=== PATIENT | male | born 1995 | race Two or more races ===

== ENCOUNTER 2025-02-17 21:26 | Emergency (ER) | payer OTHER ==
[~2025-02-17] VITALS: Ht 172.7 cm; Wt 83.9 kg
[2025-02-17 23:12] LABS: BASOPHILS % (AUTO) 0.6 % (0.0-2.0); EOSINOPHILS # (AUTO) 0.5 K/uL (0.0-0.7); EOSINOPHILS % (AUTO) 6.2 % (0.0-6.0); HEMATOCRIT 44 % (39-51); HEMOGLOBIN 15.1 g/dL (13.5-17.5); LYMPHOCYTES # (AUTO) 2.6 K/uL (0.8-4.8); LYMPHOCYTES % (AUTO) 32.2 % (20.0-44.0); MEAN CORPUSCULAR HEMOGLOBIN 32 PG (26.0-33.0); MEAN CORPUSCULAR HGB CONC 34 g/dl (31.0-36.0); MEAN CORPUSCULAR VOLUME 93 fL (80-96); MONOCYTES # (AUTO) 0.4 K/uL (0.1-1.30); MONOCYTES % (AUTO) 5.4 % (2.0-12.0); NEUTROPHILS # (AUTO) 4.5 K/uL (1.8-8.9); NEUTROPHILS % (AUTO) 55.6 % (43.0-81.0); PLATELET COUNT (AUTO) 358 K/uL (150-450); RED BLOOD CELL COUNT(AUTO) 4.75 MIL/uL (4.5-6.0); RED CELL DISTRIBUTION WIDTH 13.9 % (11.5-15.0); WHITE BLOOD COUNT (AUTO) 8.1 K/uL (4.3-11.0)
[2025-02-17 23:17] LABS: APPEARANCE,URINE CLEAR (CLEAR); BILIRUBIN,URINE NEGATIVE (NEGATIVE); BLOOD, URINE NEGATIVE Ery/uL (NEGATIVE); COLOR,URINE YELLOW (YELLOW); KETONES,URINE NEGATIVE (NEGATIVE); LEUKOCYTE ESTERASE ,URINE NEGATIVE (NEGATIVE); NITRITE, URINE NEGATIVE (NEGATIVE); PH,URINE 6.5 (5.0-8.0); PROTEIN,URINE NEGATIVE (NEGATIVE); UGLUCOSE NEGATIVE (NEGATIVE); UROBILINOGEN,URINE 0.2 EU/dL (0.2)
[2025-02-17 23:21] LABS: CALCIUM, SERUM 8.4 mg/dL (8.5-10.1); CARBON DIOXIDE 28 mmol/L (21-32); CHLORIDE 106 mmol/L (98-107); GLUCOSE 127 mg/dL (74-106); POTASSIUM 3.8 mmol/L (3.5-5.1); SODIUM SERUM 140 mmol/L (136-145); UREA NITROGEN, BLOOD 21 mg/dL (7-18)
[2025-02-17 23:27] LABS: ALANINE AMINOTRANSFERASE 24 U/L (12-78); ALKALINE PHOSPHATASE 102 U/L (46-116); ASPARTATE AMINOTRANSFERASE 12 U/L (15-37); BILIRUBIN,TOTAL 0.5 mg/dL (0.2-1.0)
[2025-02-17 23:28] LABS: ALCOHOL, BLOOD < 3 mg/dL (0-10)
[2025-02-17 23:30] LABS: AMPHETAMINE, URINE NEGATIVE (NEGATIVE); BARBITURATE, URINE NEGATIVE (NEGATIVE); BENZODIAZEPINE, URINE NEGATIVE (NEGATIVE); CANNABINOID, URINE NEGATIVE (NEGATIVE); OPIATE, URINE NEGATIVE (NEGATIVE); PHENCYCLIDINE SCREEN,URINE NEGATIVE (NEGATIVE)
[2025-02-17 23:32] LABS: COCCAINE, URINE POSITIVE (NEGATIVE)
[2025-02-18] MEDS ORDERED: VANCOMYCIN 500 MG VIAL ONE (03:52)
[2025-02-18] MEDS ORDERED: VANCOMYCIN 1 GM /D5W 250 ML PB IV ONE (03:53)
[2025-02-18] MEDS: VANCOMYCIN HCL 1.25 GM in IV D5W 260 ML IV ONE (03:55)
[2025-02-18 05:48] VITALS: BP 137/83; TEMP 98.7; O2SAT 99
== END 2025-02-18 06:52 | disposition short-term general hospital (02) ==
LOC: ER 21:33
DX: M46.26 Osteomyelitis of vertebra, lumbar region (principal); Z79.899 Other long term (current) drug therapy
CPT/HCPCS: 99285; 72131; 85025; 81003; 36415; 80053; 80320; 80307; 96365; 96366; 87040; J3370 ×2; G0480; J7060

== ENCOUNTER 2025-06-21 02:31 | Emergency (ER) | payer OTHER ==
[~2025-06-21] VITALS: Ht 182.9 cm; Wt 90.7 kg
[2025-06-21 03:01] VITALS: BP 164/111; TEMP 98.4; O2SAT 96
== END 2025-06-21 04:15 | disposition home or self-care (01) ==
LOC: ER 02:40
DX: Z46.89 Encounter for fitting and adjustment of other specified devices (principal); L29.9 Pruritus, unspecified

== ENCOUNTER 2025-06-21 22:24 | Emergency (ER) | payer OTHER ==
[~2025-06-21] VITALS: Ht 182.9 cm; Wt 90.7 kg
[2025-06-21 22:30] VITALS: BP 130/90; TEMP 98.4; O2SAT 97
== END 2025-06-22 01:16 | disposition home or self-care (01) ==
LOC: ER 22:29
DX: M79.601 Pain in right arm (principal); Z47.89 Encounter for other orthopedic aftercare
CPT/HCPCS: 73070-TC; 73080-TC